=== PATIENT | female | born 1940 | race Caucasian/White ===

== ENCOUNTER 2024-01-31 13:52 | Emergency (ER) | payer MEDICARE ==
[~2024-01-31] VITALS: Ht 160 cm; Wt 59.0 kg
[2024-01-31 13:59] VITALS: BP_SYST 114; PULSE 76; RESP 18; TEMP 98.3; O2SAT 98
[2024-01-31] MEDS ORDERED: iohexoL 350 mgI/mL, 100 ML INFUS..BTL IV ONE (14:06)
[2024-01-31 14:25] LABS: BASOPHILS # (AUTO) 0.1 K/uL (0.0-0.2); BASOPHILS % (AUTO) 0.8 % (0.0-2.0); EOSINOPHILS # (AUTO) 0.1 K/uL (0.0-0.4); EOSINOPHILS % (AUTO) 1.4 % (0.0-4.0); HEMATOCRIT 39.9 % (36-48); HEMOGLOBIN 13.6 g/dL (12.0-16.0); LYMPHOCYTES # (AUTO) 1.5 K/uL (1.0-5.5); LYMPHOCYTES % (AUTO) 15.5 % (20.5-51.5); MEAN CORPUSCULAR HEMOGLOBIN 29 pg (27-31); MEAN CORPUSCULAR HGB CONC 34 % (32-36); MEAN CORPUSCULAR VOLUME 86 fL (79.0-98.0); MONOCYTES # (AUTO) 0.8 K/uL (0.0-1.0); MONOCYTES % (AUTO) 8.2 % (1.7-9.3); NEUTROPHILS # (AUTO) 7.4 K/uL (1.8-7.7); NEUTROPHILS % (AUTO) 74.1 % (40.0-70.0); PLATELET COUNT (AUTO) 435 K/uL (130-430); RED BLOOD CELL COUNT(AUTO) 4.66 MIL/uL (4.2-6.2); RED CELL DISTRIBUTION WIDTH 14.6 % (9.0-15.0)
[2024-01-31 14:30] LABS: PROTHROMBIN TIME 10.6 SECS (9.5-12.5)
[2024-01-31 14:33] LABS: ALANINE AMINOTRANSFERASE 22 U/L (12-78); ALBUMIN 2.9 g/dL (3.4-4.8); ANION GAP 6 (5-15); ASPARTATE AMINOTRANSFERASE 20 U/L (10-37); CALCIUM 9.8 mg/dL (8.4-11.0); CARBON DIOXIDE 30 mmol/L (23-29); CHLORIDE 105 mmol/L (98-107); CREATININE 1.13 mg/dL (0.55-1.30); GLUCOSE 99 mg/dL (74-106); POTASSIUM 4.1 mmol/L (3.5-5.1); SODIUM SERUM 141 mmol/L (136-145); TOTAL BILIRUBIN 0.5 mg/dL (0.0-1.0); TOTAL PROTEIN, SERUM 6.4 g/dL (6.4-8.3); UREA NITROGEN, BLOOD 51 mg/dL (8-21)
[2024-01-31 14:35] LABS: BILIRUBIN,DIRECT 0.1 mg/dL (0.0-0.3); CREATINE KINASE, TOTAL 19 U/L (26-192)
[2024-01-31 14:36] LABS: ALCOHOL, BLOOD < 3 mg/dL (<10)
[2024-01-31] MEDS: NACL 0.9% 1,000 ML IV ONE (14:59)
[2024-01-31 16:07] LABS: BILIRUBIN,URINE NEGATIVE (NEGATIVE); BLOOD, URINE NEGATIVE (NEGATIVE); CLARITY/URINE CLEAR (CLEAR); COLOR,URINE YELLOW (YELLOW); GLUCOSE,URINE NEGATIVE (NEGATIVE); KETONES,URINE NEGATIVE (NEGATIVE); LEUKOCYTE ESTERASE ,URINE NEGATIVE (NEGATIVE); NITRITE, URINE NEGATIVE (NEGATIVE); PROTEIN URINE NEGATIVE (NEGATIVE); UROBILINOGEN,URINE 0.2 (0.2-1.0)
[2024-01-31 16:58] LABS: INFLUENZA TYPE A Negative (NEGATIVE); INFLUENZA TYPE B NEGATIVE (NEGATIVE)
[2024-01-31] MEDS: cefTRIAXone 1 GM in D5W 50 ML IV ONE (17:30)
[2024-01-31] MEDS ORDERED: cefTRIAXone 1 GM VIAL ONE (17:31)
[2024-01-31 19:31] VITALS: BP_SYST 152; PULSE 69; RESP 12; TEMP 97; O2SAT 94
== END 2024-01-31 19:20 | disposition short-term general hospital (02) ==
LOC: SED 13:52
DX: R40.4 Transient alteration of awareness (principal); Z20.822 Contact with and (suspected) exposure to COVID-19; E86.0 Dehydration; J32.8 Other chronic sinusitis; F03.90 Unspecified dementia, unspecified severity, without behavioral disturbance, psychotic disturbance, mood disturbance, and anxiety; I10 Essential (primary) hypertension; Z88.5 Allergy status to narcotic agent; Z88.8 Allergy status to other drugs, medicaments and biological substances
CPT/HCPCS: 99285; 70496; 96365; 71045; 96361; 87426; 80076; 80048; 82550; 85025; 85610; 85730; 87040; 84484; 36415; 93005; 70498; 83605; 87804 ×2; 70450; 81001; G0482; Q9967; J0696; J7030; 81003